=== PATIENT | female | born 1980 ===

== ENCOUNTER 2017-10-17 21:12 | Inpatient (IN) | payer MEDICAID, OTHER ==
[2017-10-17 22:02] LABS: ABS Basophils 0.1 10^3/ul (0-0.2); ABS Eosinophils 0 10^3/ul (0-0.6); ABS Lymphocytes 0.9 10^3/ul (1.0-4.8); ABS Monocytes 0.4 10^3/ul (0-0.8); ABS Neutrophils 14.9 10^3/ul (1.5-7.7); ABS Nucleated RBC 0 10^3/ul; Eosinophil % 0.1 % (0-6); Hematocrit 37 % (35-47); Hemoglobin 12.7 g/dl (12.0-16.0); Lymphocyte % 5.4 % (25-47); Mean Corpuscular HGB Conc 34 g/dl (31-36); Mean Corpuscular Hemoglobin 29 pg (27-31); Mean Corpuscular Volume 84 fL (80-97); Mean Platelet Volume 9 um3 (7.4-10.4); Nucleated Red Blood Cells % 0; Platelet Count 166 10^3/ul (150-450); Red Blood Count 4.39 10^6/ul (4.0-5.4); Red Cell Distribution Width 15 % (10.5-15); White Blood Count 16.3 10^3/ul (3.5-10.8)
[2017-10-17 22:17] LABS: EGFR Non-African American 79.6 (>60)
[2017-10-17] MEDS ORDERED: Magnesium Hydroxide LIQ* 30 ML UDC PO PRN (23:51)
[2017-10-17] MEDS ORDERED: ceFAZolin 1 GM ADVAN(*) 1 GM in NS 0.9% 50 ML* 50 ML IVPB ONE (23:53)
[2017-10-17] MEDS ORDERED: NS 0.9% 1000 ML* 1,000 ML IV ONE (23:55)
[2017-10-18] MEDS: Ibuprofen TAB* 600 MG PO PRN ×2 (00:50→19:34)
[2017-10-18] MEDS: Al Hydrox/Mg Hydrox/Simet LIQ* 30 ML UDC PO PRN ×2 (01:10→19:34)
--- NOTE | 2017-10-18 01:21 | HP ---
CC: [facility] * HISTORY AND PHYSICAL: DATE OF ADMISSION: 10/17/17 TIME OF EVALUATION: 2300. PRIMARY CARE PHYSICIAN: [facility]. CHIEF COMPLAINT: Nausea, vomiting and right lower extremity redness and pain. HISTORY OF PRESENT ILLNESS: This is a 37-year-old female with past medical history of methamphetamine use who has been in [facility] for the past 60 days who graduated yesterday who began feeling ill yesterday morning with nausea, dry heaving, fevers. Today, she spent the entire day in bed. She was listed to graduate and move on to another residential facility, but was unable to leave due to how sick she was and then this evening she noticed right lower extremity redness, sore, inflammation, and tenderness and came to the emergency room for further evaluation. She denies any history of skin infection in the past. She has a remote history of IV drug use. She states she last injected in 2010. As mentioned, she has been in [facility] for the past 60 days. She denies any trauma to her lower extremities. She has not shaved her legs recently either. She denies any chest pain, no shortness of breath. Otherwise, remaining review of systems is negative. In the emergency room, the patient had labs and was referred to the hospitalist service for further evaluation. PAST MEDICAL HISTORY: 1. Hypertension. 2. The patient with history of methamphetamine use. She states she smokes and she has been in [facility] for the past 60 days, graduated yesterday on the . 3. Remote history of IV drug use, last use in 2010. 4. History of hepatitis C. 5. History of chronic left hip pain. MEDICATIONS: 1. Amlodipine 5 mg p.o. daily. 2. Propranolol 120 mg p.o. daily. 3. Fluoxetine 30 mg daily. 4. Ibuprofen 800 mg daily. ALLERGIES: VENLAFAXINE, she develops a headache. FAMILY HISTORY: Reviewed and noncontributory. SOCIAL HISTORY: The patient was in [facility] for the past 60 days and now is going to a residential program in [place]. No history of smoking use for the past 60 days. She never uses alcohol, as mentioned was using methamphetamine, has been clean for the past 60 days. Her healthcare proxy is her mother, Hien. CODE STATUS: Full code. REVIEW OF SYSTEMS: A 14-point review of systems reviewed and as mentioned in the HPI. PHYSICAL EXAMINATION GENERAL: In no acute distress, resting comfortably. VITAL SIGNS: Temp 99.4, pulse rate 93, respiratory rate 20, oxygen saturation 100% on room air, and blood pressure 133/68. HEENT: Head is normocephalic. Pupils are equal and reactive. Anicteric. Oropharynx, mucous membranes moist. NECK: Supple. No lymphadenopathy. RESPIRATORY: Diminished breath sounds. No wheezes, rhonchi, or rales. CARDIAC: Regular rate and rhythm. Soft systolic murmur heard throughout. ABDOMEN: Soft, nontender, and nondistended. EXTREMITIES: No clubbing, cyanosis. Right lower extremity, anterior lower extremity portion with diffuse erythematous patch, warm and tender, some mild edema, and +1 DPs bilaterally. NEUROLOGIC: Alert and oriented x3. No focal neurologic deficits. LABORATORY DATA: White count 16.3, hemoglobin 12.7, hematocrit 37, and platelets 166,000. Sodium 130, potassium 3.6, chloride 94, bicarbonate 25, BUN 11, creatinine 0.81. ASSESSMENT: This is a 37-year-old female with past medical history of methamphetamine use who presents to the emergency room with nausea, vomiting, fever, and right lower extremity swelling and tenderness, findings consistent with cellulitis. Cellulitis. Assessment: The patient does meet systemic inflammatory response syndrome criteria with her white count and her pulse, not unreasonable to admit her overnight 24 hours for IV antibiotics. We will give her cefazolin and some IV fluids, follow up on her blood cultures, likely will be able to transition to p.o. antibiotics shortly and put in for social work consult to help with disposition planning as she has been in inpatient rehab and planning to go to a residential facility. CHRONIC MEDICAL PROBLEMS: 1. Hypertension. We will resume her antihypertensives. 2. Depression. We will resume her fluoxetine and we will continue her on ibuprofen as needed for pain and discomfort. 3. FEN. Place her on a regular unrestricted diet. 4. DVT prophylaxis. The patient's score is low risk. We will encourage ambulation. 5. Code status. Full code. TIME SPENT: Greater than 45 minutes spent doing history and physical, more than half the time spent in direct patient contact. [id number]/[facility] #: [id number] [facility]
[2017-10-18] MEDS: NS 0.9% 1000 ML* 1,000 ML IV SCH ×2 (02:17→13:52)
[2017-10-18] MEDS: ceFAZolin 1 GM VIAL(*) 1 GM in NS 0.9% 50 ML* 50 ML IVPB SCH ×3 (07:57→23:44)
[2017-10-18] MEDS: Propranolol LA CAP* 120 MG PO SCH (07:58)
[2017-10-18] MEDS: FLUoxetine CAP* 10 MG PO SCH (07:58)
[2017-10-18] MEDS: Acetaminophen TAB* 325 MG PO PRN ×2 (07:58→13:48)
[2017-10-18] MEDS: amLODIPine TAB* 5 MG PO SCH (08:01)
[2017-10-18 09:23] LABS: ABS Basophils 0.1 10^3/ul (0-0.2); ABS Eosinophils 0 10^3/ul (0-0.6); ABS Monocytes 0.5 10^3/ul (0-0.8); ABS Neutrophils 8.7 10^3/ul (1.5-7.7); ABS Nucleated RBC 0 10^3/ul; Eosinophil % 0 % (0-6); Hematocrit 36 % (35-47); Hemoglobin 12.2 g/dl (12.0-16.0); Lymphocyte % 10.2 % (25-47); Mean Corpuscular HGB Conc 34 g/dl (31-36); Mean Corpuscular Hemoglobin 29 pg (27-31); Mean Corpuscular Volume 85 fL (80-97); Mean Platelet Volume 9 um3 (7.4-10.4); Nucleated Red Blood Cells % 0; Platelet Count 132 10^3/ul (150-450); Red Cell Distribution Width 15 % (10.5-15); White Blood Count 10.2 10^3/ul (3.5-10.8)
--- NOTE | 2017-10-18 20:39 | ED ---
Mee Mcleod Emily, scribed for Ralph Gomez MD on 10/17/17 at 2131 . Complex/Multi-Sys Presentation - HPI Summary HPI Summary: This patient is a 37 year old F BIBA to [facility] with a chief complaint of red RLE and fever that began earlier today. Pt reports having a maximum fever of 101 degrees that began at 1500 today. The patient rates the pain 6/10 in severity. Symptoms aggravated by nothing. Symptoms alleviated by nothing. Patient reports chills and nausea. Medications reviewed. Allergies reviewed. - History Of Current Complaint Chief Complaint: EDGeneral Hx Obtained From: Patient Onset/Duration: Sudden Onset, Lasting Hours, Still Present Timing: Constant, Hours Severity Currently: Moderate Severity Initially: Moderate Aggravating Factor(s): Nothing Alleviating Factor(s): Nothing Associated Signs And Symptoms: Positive: Nausea, Other - Chills - Allergies/Home Medications Allergies/Adverse Reactions: Allergies Allergy/AdvReac Type Severity Reaction Status Date / Time Venlafaxine [From Effexor] Allergy Headache Verified 10/17/17 21:16 Home Medications: Home Medications FLUoxetine CAP* [PROzac CAP*] 30 mg PO DAILY 10/17/17 [History Confirmed ] Ibuprofen TAB* [Motrin TAB* 400 MG] 400 mg PO Q6H PRN 10/17/17 [History Confirmed 10/17/17] Propranolol TAB* [Inderal TAB*] 120 mg PO DAILY 10/17/17 [History Confirmed 06/26] amLODIPine TAB* [Norvasc 5 mg TAB*] 5 mg PO DAILY 10/17/17 [History Confirmed ] PMH/Surg Hx/FS Hx/Imm Hx Previously Healthy: No Cardiovascular History: Reports: Hx Hypertension Psychiatric History: Reports: Hx Anxiety, Hx Depression Infectious Disease History: No Infectious Disease History: Denies: Traveled Outside the [place] in Last 30 Days - Social History Occupation: Unemployed 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 Erysipelas Eyes: Normal, PERRL, EOMI, sclera anicteric ENT: Normal Neck: Supple, nontender Respiratory: Clear to auscultation Cardiovascular: S1, S2, no murmur, no rub, no gallop Abdomen: Soft, nontender, no organomegaly Bowel sounds: Present Musculoskeletal: Normal, Strength/ROM Intact, no edema, pulses symmetrical Neurological: Normal, A&Ox3, cranial nerves II-XII WNL, follows commands, gait not tested, sensation intact to pin and light touch Psychiatric: affect normal, behavior appropriate, dressed appropriately, judgment intact Triage Information Reviewed: Yes Vital Signs On Initial Exam: Initial Vitals Temp Pulse Resp BP Pulse Ox 99.4 F 91 20 128/85 99 10/17/17 21:15 10/17/17 21:15 10/17/17 21:15 10/17/17 21:15 10/17/17 21:15 Vital Signs Reviewed: Yes - Rajani Coma Scale Coma Scale Total: 15 Diagnostics - Vital Signs Vital Signs Temp Pulse Resp BP Pulse Ox 10/17/17 21:15 99.4 F 91 20 128/85 99 - Laboratory Lab Results: Lab Results 10/17/17 10/17/17 10/18/17 Range/Units 21:50 21:50 09:04 WBC 16.3 H 10.2 (3.5-10.8) 10^3/ul RBC 4.39 4.20 (4.0-5.4) 10^6/ul Hgb 12.7 12.2 (12.0-16.0) g/dl Hct 37 36 (35-47) % MCV 84 85 (80-97) fL MCH 29 29 (27-31) pg MCHC 34 34 (31-36) g/dl RDW 15 15 (10.5-15) % Plt Count 166 132 L (150-450) 10^3/ul MPV 9 9 (7.4-10.4) um3 Neut % (Auto) 91.3 H 84.6 H (38-83) % Lymph % (Auto) 5.4 L 10.2 L (25-47) % Blanco % (Auto) 2.7 4.7 (1-9) % Eos % (Auto) 0.1 0 (0-6) % Baso % (Auto) 0.5 0.5 (0-2) % Absolute Neuts (auto) 14.9 H 8.7 H (1.5-7.7) 10^3/ul Absolute Lymphs (auto) 0.9 L 1.0 (1.0-4.8) 10^3/ul Absolute Monos (auto) 0.4 0.5 (0-0.8) 10^3/ul Absolute Eos (auto) 0 0 (0-0.6) 10^3/ul Absolute Basos (auto) 0.1 0.1 (0-0.2) 10^3/ul Absolute Nucleated RBC 0 0 10^3/ul Nucleated RBC % 0 0 Sodium 130 L (133-145) mmol/L Potassium 3.6 (3.5-5.0) mmol/L Chloride 94 L (101-111) mmol/L Carbon Dioxide 25 (22-32) mmol/L Anion Gap 11 (2-11) mmol/L BUN 11 (6-24) mg/dL Creatinine 0.81 (0.51-0.95) mg/dL Est GFR ( Amer) 102.3 (>60) Est GFR (Non-Af Amer) 79.6 (>60) BUN/Creatinine Ratio 13.6 (8-20) Glucose 129 H (70-100) mg/dL Calcium 9.4 (8.6-10.3) mg/dL Total Bilirubin 0.70 (0.2-1.0) mg/dL AST 12 L (13-39) U/L ALT 11 (7-52) U/L Alkaline Phosphatase 39 (34-104) U/L Total Protein 7.6 (6.4-8.9) g/dL Albumin 4.0 (3.2-5.2) g/dL Globulin 3.6 (2-4) g/dL Albumin/Globulin Ratio 1.1 (1-3) Result Diagrams: 10/18/17 09:04 10/17/17 21:50 Lab Statement: Any lab studies that have been ordered have been reviewed, and results considered in the medical decision making process. Complex Multi-Symp Course/Dx Assessment/Plan: This patient is a 37 year old F BIBA to [facility] with a chief complaint of red RLE and fever that began earlier today. Pt reports having a maximum fever of 101 degrees that began at 1500 today. The patient rates the pain 6/10 in severity. Physical Exam Findings. Morbid obesity. Cellulitis of the leg extending from excoriated area of the medial side of the right leg to the proximal calf, tender to touch, no drainage, no purulence, no pustules. Erysipelas. Bloodwork obtained. Consult with Dr. Mccormick (hospitalist) at 2255. She agreed to admit pt for further evaluation. The patient is agreeable with this plan. - Diagnoses Provider Diagnoses: Cellulitis of right lower extremity, Tinea pedis - Physician Notifications Discussed Care Of Patient With: Constanza Mccormick Time Discussed With Above Provider: 22:55 Instructed by Provider To: Other - Consult with Dr. Mccormick (hospitalist) at 2255. She agreed to admit pt for further evaluation. Discharge - Discharge Plan Condition: Fair Disposition: ADMITTED TO [facility] documentation as recorded by the Mee solis Emily accurately reflects the service I personally performed and the decisions made by me, Ralph Gomez MD.
--- NOTE | 2017-10-18 22:00 | RAD ---
INDICATION: Pain and swelling. COMPARISON: None TECHNIQUE: Duplex interrogation of the both lower extremities was performed. FINDINGS: Deep veins: The common femoral, great saphenous, profunda femoris, proximal, mid, and distal deep femoral, popliteal, posterior tibial, and peroneal veins are patent. There is normal compressibility, augmentation, and phasic flow. Superficial veins: There are no findings of superficial thrombophlebitis. Popliteal fossa:There is no evidence of a popliteal cyst. Soft tissues: There is a reniform partially fatty replaced lymph node in the right groin measuring 2.2 x 1.0 x 1.9 cm. IMPRESSION: NO EVIDENCE OF DEEP VENOUS THROMBOSIS
--- NOTE | 2017-10-19 00:18 | PN ---
Subjective Date of Service: 10/18/17 Interval History: Denies chest pain, Denies N/V/D or abd pain. Denies shortness of breath. States that right leg pain is improving. able to walk today with less pain. Family History: Unchanged from Admission Social History: Unchanged from Admission Past Medical History: Unchanged from Admission Objective Active Medications: Acetaminophen (Tylenol Tab*) 650 mg PO Q4H PRN PRN Reason: FEVER/PAIN Last Admin: 10/18/17 13:48 Dose: 650 mg Al Hydrox/Mg Hydrox/Simethicone (Maalox Plus*) 30 ml PO Q6H PRN PRN Reason: INDIGESTION Last Admin: 10/18/17 19:34 Dose: 30 ml Amlodipine Besylate (Norvasc Tab*) 5 mg PO DAILY [facility] Last Admin: 10/18/17 08:01 Dose: 5 mg Fluoxetine HCl (Prozac Cap*) 30 mg PO DAILY [facility] Last Admin: 10/18/17 07:58 Dose: 30 mg Cefazolin Sodium 1 gm/ Sodium (Chloride) 50 mls @ 200 mls/hr IVPB Q8H [facility] Last Admin: 10/18/17 23:44 Dose: 200 mls/hr Ibuprofen (Motrin Tab*) 600 mg PO Q6H PRN PRN Reason: PAIN Last Admin: 10/18/17 19:34 Dose: 600 mg Magnesium Hydroxide (Milk Of Magnesia Liq*) 30 ml PO Q4H PRN PRN Reason: CONSTIPATION Propranolol HCl (Inderal La Cap*) 120 mg PO DAILY [facility] Last Admin: 10/18/17 07:58 Dose: 120 mg Vital Signs - 8 hr 10/18/17 10/18/17 10/18/17 18:21 19:16 20:00 Temperature 98.5 F 98.5 F Pulse Rate 91 87 Respiratory 22 22 20 Rate Blood Pressure 144/59 134/76 (mmHg) O2 Sat by Pulse 100 100 Oximetry 10/18/17 23:40 Temperature 98.5 F Pulse Rate 73 Respiratory 16 Rate Blood Pressure 114/41 (mmHg) O2 Sat by Pulse 97 Oximetry Oxygen Devices in Use Now: None Eyes: No Scleral Icterus Ears/Nose/Mouth/Throat: Clear Oropharnyx, Mucous Membranes Moist Neck: NL Appearance and Movements; NL JVP, Trachea Midline Respiratory: Symmetrical Chest Expansion and Respiratory Effort, Clear to Auscultation Cardiovascular: NL Sounds; No Murmurs; No JVD, RRR, No Edema Abdominal: NL Sounds; No Tenderness; No Distention Extremities: No Edema, No Clubbing, Cyanosis Skin: - - redened area noted to right lower leg, area of redness is outlines and remains within the outlined area. Neurological: Alert and Oriented x 3, NL Sensation, NL Muscle Strength and Tone Result Diagrams: 10/19/17 07:54 10/19/17 07:54 Additional Lab and Data: Lab Results 10/17/17 10/17/17 10/18/17 Range/Units 21:50 21:50 09:04 WBC 16.3 H 10.2 (3.5-10.8) 10^3/ul RBC 4.39 4.20 (4.0-5.4) 10^6/ul Hgb 12.7 12.2 (12.0-16.0) g/dl Hct 37 36 (35-47) % MCV 84 85 (80-97) fL MCH 29 29 (27-31) pg MCHC 34 34 (31-36) g/dl RDW 15 15 (10.5-15) % Plt Count 166 132 L (150-450) 10^3/ul MPV 9 9 (7.4-10.4) um3 Neut % (Auto) 91.3 H 84.6 H (38-83) % Lymph % (Auto) 5.4 L 10.2 L (25-47) % Dickey % (Auto) 2.7 4.7 (1-9) % Eos % (Auto) 0.1 0 (0-6) % Baso % (Auto) 0.5 0.5 (0-2) % Absolute Neuts (auto) 14.9 H 8.7 H (1.5-7.7) 10^3/ul Absolute Lymphs (auto) 0.9 L 1.0 (1.0-4.8) 10^3/ul Absolute Monos (auto) 0.4 0.5 (0-0.8) 10^3/ul Absolute Eos (auto) 0 0 (0-0.6) 10^3/ul Absolute Basos (auto) 0.1 0.1 (0-0.2) 10^3/ul Absolute Nucleated RBC 0 0 10^3/ul Nucleated RBC % 0 0 Sodium 130 L (133-145) mmol/L Potassium 3.6 (3.5-5.0) mmol/L Chloride 94 L (101-111) mmol/L Carbon Dioxide 25 (22-32) mmol/L Anion Gap 11 (2-11) mmol/L BUN 11 (6-24) mg/dL Creatinine 0.81 (0.51-0.95) mg/dL Est GFR ( Amer) 102.3 (>60) Est GFR (Non-Af Amer) 79.6 (>60) BUN/Creatinine Ratio 13.6 (8-20) Glucose 129 H (70-100) mg/dL Calcium 9.4 (8.6-10.3) mg/dL Total Bilirubin 0.70 (0.2-1.0) mg/dL AST 12 L (13-39) U/L ALT 11 (7-52) U/L Alkaline Phosphatase 39 (34-104) U/L Total Protein 7.6 (6.4-8.9) g/dL Albumin 4.0 (3.2-5.2) g/dL Globulin 3.6 (2-4) g/dL Albumin/Globulin Ratio 1.1 (1-3) Assess/Plan/Problems-Billing Assessment: This is a 37 y.o female c/o fever chills and right lower leg redness, and cellulitis - Patient Problems (1) Cellulitis Current Visit: Yes Status: Acute Code(s): L03.90 - CELLULITIS, UNSPECIFIED SNOMED Code(s): 341811031 Comment: ceflazolin elevate (2) Leucocytosis Current Visit: Yes Status: Acute Code(s): D72.829 - ELEVATED WHITE BLOOD CELL COUNT, UNSPECIFIED SNOMED Code(s): 384947168 Comment: suspect this is related to right lower leg cellulitis continue antibiotics (3) DVT prophylaxis Current Visit: Yes Status: Acute Code(s): ELD9783 - SNOMED Code(s): 591503129 Comment: ambulate (4) Full code status Current Visit: Yes Status: Acute Code(s): Z78.9 - OTHER SPECIFIED HEALTH STATUS SNOMED Code(s): 350973801
[2017-10-19] MEDS: Acetaminophen TAB* 325 MG PO PRN (07:37)
[2017-10-19] MEDS: Propranolol LA CAP* 120 MG PO SCH (07:38)
[2017-10-19] MEDS: amLODIPine TAB* 5 MG PO SCH (07:38)
[2017-10-19] MEDS: FLUoxetine CAP* 10 MG PO SCH (07:38)
[2017-10-19] MEDS: ceFAZolin 1 GM VIAL(*) 1 GM in NS 0.9% 50 ML* 50 ML IVPB SCH ×2 (07:40→16:15)
[2017-10-19 08:04] LABS: ABS Basophils 0.1 10^3/ul (0-0.2); ABS Eosinophils 0.1 10^3/ul (0-0.6); ABS Lymphocytes 1.5 10^3/ul (1.0-4.8); ABS Monocytes 0.6 10^3/ul (0-0.8); ABS Neutrophils 8.2 10^3/ul (1.5-7.7); ABS Nucleated RBC 0 10^3/ul; Eosinophil % 0.9 % (0-6); Hematocrit 37 % (35-47); Hemoglobin 12.4 g/dl (12.0-16.0); Lymphocyte % 14.2 % (25-47); Mean Corpuscular HGB Conc 34 g/dl (31-36); Mean Corpuscular Hemoglobin 29 pg (27-31); Mean Corpuscular Volume 86 fL (80-97); Mean Platelet Volume 10 um3 (7.4-10.4); Nucleated Red Blood Cells % 0.1; Platelet Count 141 10^3/ul (150-450); Red Blood Count 4.28 10^6/ul (4.0-5.4); Red Cell Distribution Width 15 % (10.5-15); White Blood Count 10.5 10^3/ul (3.5-10.8)
--- NOTE | 2017-10-19 15:41 | PN ---
Subjective Date of Service: 10/19/17 Interval History: C/o increased pain to right lower leg and groin. Denies chest pain, shortness of breath or abd pain. Denies N/V/D. Family History: Unchanged from Admission Social History: Unchanged from Admission Past Medical History: Unchanged from Admission Objective Active Medications: Acetaminophen (Tylenol Tab*) 650 mg PO Q4H PRN PRN Reason: FEVER/PAIN Last Admin: 10/19/17 07:37 Dose: 650 mg Al Hydrox/Mg Hydrox/Simethicone (Maalox Plus*) 30 ml PO Q6H PRN PRN Reason: INDIGESTION Last Admin: 10/18/17 19:34 Dose: 30 ml Amlodipine Besylate (Norvasc Tab*) 5 mg PO DAILY [facility] Last Admin: 10/19/17 07:38 Dose: 5 mg Fluoxetine HCl (Prozac Cap*) 30 mg PO DAILY [facility] Last Admin: 10/19/17 07:38 Dose: 30 mg Cefazolin Sodium 1 gm/ Sodium (Chloride) 50 mls @ 200 mls/hr IVPB Q8H [facility] Last Admin: 10/19/17 07:40 Dose: 200 mls/hr Ibuprofen (Motrin Tab*) 600 mg PO Q6H PRN PRN Reason: PAIN Last Admin: 10/18/17 19:34 Dose: 600 mg Magnesium Hydroxide (Milk Of Magnnathaly Liq*) 30 ml PO Q4H PRN PRN Reason: CONSTIPATION Propranolol HCl (Inderal La Cap*) 120 mg PO DAILY [facility] Last Admin: 10/19/17 07:38 Dose: 120 mg Vital Signs - 8 hr 10/19/17 10/19/17 07:52 11:16 Temperature 98.3 F Pulse Rate 75 Respiratory 16 17 Rate Blood Pressure 114/36 (mmHg) O2 Sat by Pulse 99 Oximetry Oxygen Devices in Use Now: None Appearance: alert, awake, sitting in bed. appears to be in mild pain. Eyes: No Scleral Icterus Ears/Nose/Mouth/Throat: NL Teeth, Lips, Gums, Clear Oropharnyx, Mucous Membranes Moist Neck: NL Appearance and Movements; NL JVP, Trachea Midline Respiratory: Symmetrical Chest Expansion and Respiratory Effort, Clear to Auscultation Cardiovascular: NL Sounds; No Murmurs; No JVD, RRR, No Edema Abdominal: NL Sounds; No Tenderness; No Distention Extremities: No Clubbing, Cyanosis, - - right lower leg with erythema and mild amt of swelling, erythema extending beyond the outlined area. DP +2 Neurological: Alert and Oriented x 3, NL Sensation, NL Gait, NL Muscle Strength and Tone Nutrition: Taking PO's Result Diagrams: 10/19/17 07:54 10/19/17 07:54 Additional Lab and Data: Lab Results 10/17/17 10/17/17 10/18/17 Range/Units 21:50 21:50 09:04 WBC 16.3 H 10.2 (3.5-10.8) 10^3/ul RBC 4.39 4.20 (4.0-5.4) 10^6/ul Hgb 12.7 12.2 (12.0-16.0) g/dl Hct 37 36 (35-47) % MCV 84 85 (80-97) fL MCH 29 29 (27-31) pg MCHC 34 34 (31-36) g/dl RDW 15 15 (10.5-15) % Plt Count 166 132 L (150-450) 10^3/ul MPV 9 9 (7.4-10.4) um3 Neut % (Auto) 91.3 H 84.6 H (38-83) % Lymph % (Auto) 5.4 L 10.2 L (25-47) % Glades % (Auto) 2.7 4.7 (1-9) % Eos % (Auto) 0.1 0 (0-6) % Baso % (Auto) 0.5 0.5 (0-2) % Absolute Neuts (auto) 14.9 H 8.7 H (1.5-7.7) 10^3/ul Absolute Lymphs (auto) 0.9 L 1.0 (1.0-4.8) 10^3/ul Absolute Monos (auto) 0.4 0.5 (0-0.8) 10^3/ul Absolute Eos (auto) 0 0 (0-0.6) 10^3/ul Absolute Basos (auto) 0.1 0.1 (0-0.2) 10^3/ul Absolute Nucleated RBC 0 0 10^3/ul Nucleated RBC % 0 0 Sodium 130 L (133-145) mmol/L Potassium 3.6 (3.5-5.0) mmol/L Chloride 94 L (101-111) mmol/L Carbon Dioxide 25 (22-32) mmol/L Anion Gap 11 (2-11) mmol/L BUN 11 (6-24) mg/dL Creatinine 0.81 (0.51-0.95) mg/dL Est GFR ( Amer) 102.3 (>60) Est GFR (Non-Af Amer) 79.6 (>60) BUN/Creatinine Ratio 13.6 (8-20) Glucose 129 H (70-100) mg/dL Calcium 9.4 (8.6-10.3) mg/dL Total Bilirubin 0.70 (0.2-1.0) mg/dL AST 12 L (13-39) U/L ALT 11 (7-52) U/L Alkaline Phosphatase 39 (34-104) U/L Total Protein 7.6 (6.4-8.9) g/dL Albumin 4.0 (3.2-5.2) g/dL Globulin 3.6 (2-4) g/dL Albumin/Globulin Ratio 1.1 (1-3) Assess/Plan/Problems-Billing Assessment: This is a 37 y.o female c/o fever chills and right lower leg redness, and cellulitis - Patient Problems (1) Cellulitis Current Visit: Yes Status: Acute Code(s): L03.90 - CELLULITIS, UNSPECIFIED SNOMED Code(s): 439936403 Comment: C/o increased pain to right lower, worse with ambulation. Bilateral lower ext. Venous ultrasound was negative for DVT will continue ceflazolin IV elevate (2) Leucocytosis Current Visit: Yes Status: Acute Code(s): D72.829 - ELEVATED WHITE BLOOD CELL COUNT, UNSPECIFIED SNOMED Code(s): 711141614 Comment: suspect this is related to right lower leg cellulitis continue antibiotics resolved (3) DVT prophylaxis Current Visit: Yes Status: Acute Code(s): SNL0953 - SNOMED Code(s): 767781156 Comment: ambulate (4) Full code status Current Visit: Yes Status: Acute Code(s): Z78.9 - OTHER SPECIFIED HEALTH STATUS SNOMED Code(s): 678456660 Status and Disposition: will keep inpatient for IV antibiotics, possible discharge in the AM
[2017-10-19] MEDS: Al Hydrox/Mg Hydrox/Simet LIQ* 30 ML UDC PO PRN (16:14)
[2017-10-19] MEDS: Ibuprofen TAB* 600 MG PO PRN (16:18)
[2017-10-20] MEDS: Acetaminophen TAB* 325 MG PO PRN (00:16)
[2017-10-20] MEDS: ceFAZolin 1 GM VIAL(*) 1 GM in NS 0.9% 50 ML* 50 ML IVPB SCH ×2 (00:17→08:10)
[2017-10-20 08:06] VITALS: BP 126/74
[2017-10-20] MEDS: amLODIPine TAB* 5 MG PO SCH (08:13)
[2017-10-20] MEDS: FLUoxetine CAP* 10 MG PO SCH (08:13)
[2017-10-20] MEDS: Propranolol LA CAP* 120 MG PO SCH (08:14)
--- NOTE | 2017-10-20 09:08 | PN ---
Subjective Date of Service: 10/20/17 Interval History: C/o mild pain to right lower leg. Continues to c/o right groin pain, Denies N/V /D. Denies chest pain or shortness of breath. Denies ABd pain Family History: Unchanged from Admission Social History: Unchanged from Admission Past Medical History: Unchanged from Admission Objective Active Medications: Acetaminophen (Tylenol Tab*) 650 mg PO Q4H PRN PRN Reason: FEVER/PAIN Last Admin: 10/20/17 00:16 Dose: 650 mg Al Hydrox/Mg Hydrox/Simethicone (Maalox Plus*) 30 ml PO Q6H PRN PRN Reason: INDIGESTION Last Admin: 10/19/17 16:14 Dose: 30 ml Amlodipine Besylate (Norvasc Tab*) 5 mg PO DAILY [facility] Last Admin: 10/20/17 08:13 Dose: 5 mg Fluoxetine HCl (Prozac Cap*) 30 mg PO DAILY [facility] Last Admin: 10/20/17 08:13 Dose: 30 mg Cefazolin Sodium 1 gm/ Sodium (Chloride) 50 mls @ 200 mls/hr IVPB Q8H [facility] Last Admin: 10/20/17 08:10 Dose: 200 mls/hr Ibuprofen (Motrin Tab*) 600 mg PO Q6H PRN PRN Reason: PAIN Last Admin: 10/19/17 16:18 Dose: 600 mg Magnesium Hydroxide (Milk Of Magnesia Liq*) 30 ml PO Q4H PRN PRN Reason: CONSTIPATION Propranolol HCl (Inderal La Cap*) 120 mg PO DAILY [facility] Last Admin: 10/20/17 08:14 Dose: 120 mg Vital Signs - 8 hr 10/20/17 10/20/17 03:08 08:04 Temperature 98.3 F 98.0 F Pulse Rate 70 73 Respiratory 16 18 Rate Blood Pressure 115/53 126/74 (mmHg) O2 Sat by Pulse 99 98 Oximetry Oxygen Devices in Use Now: None Appearance: appears comfortable sitting in bed , alert Eyes: No Scleral Icterus Ears/Nose/Mouth/Throat: NL Teeth, Lips, Gums, Clear Oropharnyx, Mucous Membranes Moist Neck: NL Appearance and Movements; NL JVP, Trachea Midline Respiratory: Symmetrical Chest Expansion and Respiratory Effort, Clear to Auscultation Cardiovascular: NL Sounds; No Murmurs; No JVD, RRR, No Edema Abdominal: NL Sounds; No Tenderness; No Distention Extremities: No Edema, No Clubbing, Cyanosis, - - redness noted to right lower leg, improved DP +2 Skin: - - redness to right lower leg, improved, Neurological: Alert and Oriented x 3, NL Muscle Strength and Tone Nutrition: Taking PO's Result Diagrams: 10/19/17 07:54 10/19/17 07:54 Additional Lab and Data: Lab Results 10/17/17 10/17/17 10/18/17 Range/Units 21:50 21:50 09:04 WBC 16.3 H 10.2 (3.5-10.8) 10^3/ul RBC 4.39 4.20 (4.0-5.4) 10^6/ul Hgb 12.7 12.2 (12.0-16.0) g/dl Hct 37 36 (35-47) % MCV 84 85 (80-97) fL MCH 29 29 (27-31) pg MCHC 34 34 (31-36) g/dl RDW 15 15 (10.5-15) % Plt Count 166 132 L (150-450) 10^3/ul MPV 9 9 (7.4-10.4) um3 Neut % (Auto) 91.3 H 84.6 H (38-83) % Lymph % (Auto) 5.4 L 10.2 L (25-47) % Sampson % (Auto) 2.7 4.7 (1-9) % Eos % (Auto) 0.1 0 (0-6) % Baso % (Auto) 0.5 0.5 (0-2) % Absolute Neuts (auto) 14.9 H 8.7 H (1.5-7.7) 10^3/ul Absolute Lymphs (auto) 0.9 L 1.0 (1.0-4.8) 10^3/ul Absolute Monos (auto) 0.4 0.5 (0-0.8) 10^3/ul Absolute Eos (auto) 0 0 (0-0.6) 10^3/ul Absolute Basos (auto) 0.1 0.1 (0-0.2) 10^3/ul Absolute Nucleated RBC 0 0 10^3/ul Nucleated RBC % 0 0 Sodium 130 L (133-145) mmol/L Potassium 3.6 (3.5-5.0) mmol/L Chloride 94 L (101-111) mmol/L Carbon Dioxide 25 (22-32) mmol/L Anion Gap 11 (2-11) mmol/L BUN 11 (6-24) mg/dL Creatinine 0.81 (0.51-0.95) mg/dL Est GFR ( Amer) 102.3 (>60) Est GFR (Non-Af Amer) 79.6 (>60) BUN/Creatinine Ratio 13.6 (8-20) Glucose 129 H (70-100) mg/dL Calcium 9.4 (8.6-10.3) mg/dL Total Bilirubin 0.70 (0.2-1.0) mg/dL AST 12 L (13-39) U/L ALT 11 (7-52) U/L Alkaline Phosphatase 39 (34-104) U/L Total Protein 7.6 (6.4-8.9) g/dL Albumin 4.0 (3.2-5.2) g/dL Globulin 3.6 (2-4) g/dL Albumin/Globulin Ratio 1.1 (1-3) Assess/Plan/Problems-Billing Assessment: This is a 37 y.o female c/o fever chills and right lower leg redness, ( cellulitis) improving will discharge home today - Patient Problems (1) Cellulitis Status: Acute Code(s): L03.90 - CELLULITIS, UNSPECIFIED SNOMED Code(s): 309406595 Comment: C/o improved pain to right lower, slight increase of pain with ambulation. Continue to c/o right groin pain- no rednesss or warmth noted Bilateral lower ext. Venous ultrasound was negative for DVT will continue on keflex 500 mg po QID elevate erythema has improved (2) Leucocytosis Status: Acute Code(s): D72.829 - ELEVATED WHITE BLOOD CELL COUNT, UNSPECIFIED SNOMED Code(s): 859548133 Comment: suspect this is related to right lower leg cellulitis continue antibiotics resolved (3) DVT prophylaxis Status: Acute Code(s): YOF6146 - SNOMED Code(s): 499743900 Comment: ambulate (4) Full code status Status: Acute Code(s): Z78.9 - OTHER SPECIFIED HEALTH STATUS SNOMED Code(s) : 769053323 Status and Disposition: Improved Will discharge Watch for increased redness. Return to the Emergency room if you develop a fever, red streaking going up your leg. Complete all of your antibiotic. Follow up with your primary care doctor in 7 to 10 days Go to the walk in clinic if you develop increased redness extending up your leg. Tylenol and ibuprofen as needed for pain.
--- NOTE | 2017-10-22 16:56 | DS ---
DISCHARGE SUMMARY: DATE OF ADMISSION: 10/18/17 DATE OF DISCHARGE: 10/20/17 ATTENDING PHYSICIAN WHILE IN THE HOSPITAL: Dr. Camille Camp * (dictated by Amanda Hensley, ALANA) PRIMARY CARE PROVIDER: No primary care provider at this time. She is resident at [facility]. PRIMARY DIAGNOSES: 1. Nausea, vomiting. 2. Cellulitis. SECONDARY DIAGNOSES: 1. Hypertension. 2. History of methamphetamine use. 3. Remote history of intravenous drug use, last use in 2010. 4. Hepatitis C. 5. Chronic left hip pain. STUDIES WHILE IN THE HOSPITAL: She had a venous Doppler of bilateral lower legs and radiologist's impression, no evidence of deep vein thrombosis, there was a partially fatty replaced lymph node in the right groin measuring 2.2 x 1.0 x 1.9. DISCHARGE MEDICATIONS: She will be discharged back to [facility]. She will be placed on: 1. Keflex 500 mg p.o. four times a day for 7 days. 2. She may take Tylenol 650 mg p.o. q.6 hours as needed for pain. Continued home medications: 1. She will continue amlodipine 5 mg p.o. daily. 2. Inderal 120 mg p.o. daily. 3. She can continue ibuprofen 400 mg q.6 hours as needed for pain. 4. Prozac 30 mg p.o. daily. HISTORY OF PRESENT ILLNESS AND HOSPITAL COURSE: Ms. Garay is a 37-year-old female with a past medical history of methamphetamine use, who is currently in [facility] for the past 60 days, who graduated yesterday, but began feeling yesterday morning with nausea and dry heaving and fevers. She spent the entire day in bed. She was listed to graduate and move to another residential facility, but she was unable to due to how sick was feeling and noticed her right lower extremity was red, sore, inflamed, and tender. She presented to the emergency room to have this evaluated. She denies any history of skin infections in the past. She does have a remote history of IV drug use. She states the last time she injected was in 2010. As mentioned, she has been in [facility] for the past 60 days. She denies any trauma to the lower extremity. She has not shaved her legs recently either. She denies any chest pain. No shortness of breath. During her stay in the emergency room, she had routine lab work drawn. Her initial white count was 16.3, hemoglobin was 12.7, hematocrit 37. Her initial sodium level was 130, potassium was 3.6, chloride was 94. A repeat CBC on 10/19/17 showed white count of 10.5, hemoglobin 12.4, hematocrit was 37, platelet count was 141. Her repeat sodium was 135, potassium was 3.7, chloride was 104, BUN was 12, and creatinine was 0.54. While she was in the emergency room, she received normal saline. She was started on cefazolin 1 g IV every 8 hours. She continued that during her hospitalization. While in the hospital, we continued cefazolin IV 1 g every 8 hours. The redness to her right lower leg fluctuated in outside of the initial borderline that was drawn on her leg on admission. The color of the redness has lessened. On the day of admission, it was less warm to touch. She states that the pain had improved in her right lower leg and that she was now able to walk. She does still continue to complain of the mild tenderness in the right lower leg. She did have bilateral lower leg venous Dopplers that were negative for DVT bilaterally. She has been afebrile throughout her hospital stay. Ms. Garay is feeling better today and she will be discharged back to [facility]. Ms. Garay is stable for discharge to [facility] today. Vital signs are as follows, temperature was 98.0, pulse was 73, respirations 18, O2 saturation was 98%, blood pressure was 126/74. DISCHARGE PLAN: Ms. Garay will be discharged back to [facility] today. Activity as tolerated. She should continue Keflex 500 mg 4 times a day for the next 7 days. She should have her leg rechecked in 7 days. She was instructed to report to the clinic at the [facility] Facility for any increased redness or pain in her right lower leg or if she developed a fever. She should follow up at the clinic for a recheck in 7 days as she does not have a primary care physician. The patient was instructed to return to emergency room for increased fevers or increased redness in her leg with streaking. This is a summary of her medical stay during her hospitalization. For further details, see the entire medical record. TIME SPENT: Time spent on this discharge was approximately 60 minutes, greater than half the time was spent with the patient discussing her discharge plan and instructions. CONDITION ON DISCHARGE: Stable. AMANDA HENSLEY NP [id number]/[facility] #: [id number]
== END 2017-10-20 13:30 | DRG 383 ==
LOC: ED 21:12 → MED 23:15 → OBSVTOIN 10-18 14:30
PROVIDERS: ADMIT Pediatrics; ATTEND Internal Medicine
DX: L03.115 Cellulitis of right lower limb (principal); F33.9 Major depressive disorder, recurrent, unspecified; I10 Essential (primary) hypertension; B19.20 Unspecified viral hepatitis C without hepatic coma; M25.552 Pain in left hip; F15.11 Other stimulant abuse, in remission; F17.210 Nicotine dependence, cigarettes, uncomplicated; Z79.1 Long term (current) use of non-steroidal anti-inflammatories (NSAID); Z79.899 Other long term (current) drug therapy; Z88.8 Allergy status to other drugs, medicaments and biological substances
CPT/HCPCS: 36415; 80048; 80053; 85025; 87040; 93970; 99284; A9270-GY; J0690